=== PATIENT | male | born 1955 | race Caucasian/White ===

== ENCOUNTER 2022-12-03 16:19 | Emergency (ER) | payer MEDICARE, SELFPAY ==
[2022-12-03 17:53] VITALS: BP 157/82; PULSE 63; RESP 18; TEMP 36.1; O2SAT 98; BMI 27.1
--- NOTE | 2022-12-03 17:55 | ED.GENADULT ---
HPI - General Adult General Chief complaint: Wound/Laceration Stated complaint: laceration right hand Time Seen by Provider: 12/03/22 20:31 Source: patient Mode of arrival: ambulatory Limitations: no limitations History of Present Illness HPI narrative: 67-year-old male presents with hand laceration of the right hand. Laceration was from glass. His large PEs. No shards. Was a contaminated area. No prior treatment. There is no numbness or tingling. Pain is mild. Does not radiate. Worse with palpation. No loss of strength. Related Data Previous Rx's Medication Instructions Recorded cephalexin 500 mg capsule 500 mg PO TID #14 caps 12/03/22 Allergies Allergy/AdvReac Type Severity Reaction Status Date / Time No Known Allergies Allergy Verified 12/03/22 20:51 Review of Systems Review of Systems: CONSTITUTIONAL: Denies weight loss, fever and chills. HEENT: Denies changes in vision and hearing. RESPIRATORY: Denies SOB and cough. CV: Denies palpitations no CP. GI: Denies abdominal pain, nausea, vomiting and diarrhea. : Denies dysuria and urinary frequency. MSK: Denies myalgia and joint pain. SKIN: Denies rash and pruritus. Laceration to hand NEUROLOGICAL: Denies headache and syncope. PSYCHIATRIC: Denies recent changes in mood. Denies anxiety and depression. All other ROS are negative unless in HPI PMFSH Social History Social History Smoked in Last 30 Days: No Use of substances other than those prescribed or required for medical reasons: No Advance Directives: No Advance Directives Information Provided: No Physical Exam ED Vital Signs: Vital Signs - 24 hr 12/03/22 17:53 12/03/22 20:41 Temperature 97 F Pulse Rate 63 63 Respiratory Rate 18 18 Blood Pressure 157/82 H 147/82 H Pulse Oximetry 98 98 Oxygen Delivery Method Room Air Room Air BMI result Body Mass Index 27.1 GEN: Well developed, no acute distress, alert, oriented HEENT: Normocephalic, atraumatic, normal external ears, nose appears normal Eyes: Normal to appearance Neck: Supple, no lymphadenopathy Respiratory: Talks in complete sentences, no respiratory distress Extremities: No clubbing cyanosis or edema Neurologic: No focal neurologic deficits, cranial nerves 2-12 intact, gait normal Skin: No rash , 6 cm laceration to the dorsal aspect of the right hand. No visible tendon damage. Able to flex and extend against resistance. Neurovascular intact. Capillary refill normal. Course Course Course Narrative: This is an RME: Additional HPI, ROS, PE not included below will be deferred to primary provider. This is a 37-onjp-ayw-male, hx of hypertension, CVA in September 2016, presenting to the emergency department with a complaint of right hand laceration which occurred today. Pt was moving a piece of glass at his home and lacerated the top of his hand. Partial thickness laceration noted, approx 5cm, no active bleeding. Will need suture repair. Plan: TDAP Reevaluation(s) Reevaluation #1: Wound care instructions provided to patient Time: 21:18 Medications Administered Discontinued Medications Generic Name Dose Route Start Last Admin Trade Name Freq PRN Reason Stop Dose Admin Cephalexin HCl 500 mg 12/03/22 20:51 12/03/22 20:59 Cephalexin 500 Mg Capsule PO 12/03/22 20:52 500 mg ONCE ONE Administration Diphtheria/Tetanus/Acell Pertussis 0.5 ml 12/03/22 20:51 12/03/22 20:59 Diphth,Pertus(Acell),Tet Adult 0.5 Ml Syringe IM 12/03/22 20:52 0.5 ml .ONCE ONE Administration Procedures Laceration Laceration 1: Site: hand Side (If applicable): right Size (cm): 6 Description: linear Depth: simple, single layer Pre-repair: irrigated extensively and deep structures intact Size (cm): other (Dermabond and Steri-Strips) Medical Decision Making Medical Decision Making MDM Narrative: 67-year-old male presents with hand laceration. There is no evidence 10 and tendon damage. Patient is neurovascular intact. Parous performed using Dermabond and Steri-Strips following extensive irrigation. Patient was prophylaxed with Keflex. Tetanus vaccine was provided to the patient. Patient will follow-up as needed. Differential Diagnosis Differential Diagnoses: The differential diagnosis associated with the presentation includes (Hand laceration, abrasion, rash) Hand laceration Prescription Management I considered prescription management with: Pain Medication and Antibiotic Discharge Plan Discharge Clinical Impression: Laceration Patient Disposition: Home, Self-Care Instructions: Skin Adhesive Care (ED), Head Laceration (ED) Prescriptions: New cephalexin 500 mg capsule 500 mg PO TID Qty: 14 0RF
--- OUTSIDE RECORDS SUMMARY | 2022-12-03 19:17 | XMS_ITS | Continuity of Care Document ---
Author Name Unknown Organization [facility] Markus Bird lt Address [address] [place] [address]- Care Team Providers Care Timber Repairer Name Role Phone Erin Maye SAL Primary Care Physician Encounter [facility] Date(s): 10/29/22 - 11/28/22 [facility] Adult [address] [place] [address]- Allergies, Adverse Reactions, Alerts No Known Allergies Immunizations Given and Recorded Vaccine Date Status Refusal Reason zoster vaccine, inactivated 09/08/22 Recorded influenza virus vaccine, inactivated 04/01/22 Wilber rded [id number] bivalent booster vax 04/01/22 Recorded pneumococcal 13-valent vaccine 05/22/21 Recorded Medications amLODIPine 5 mg oral tablet TAKE 1 TABLET BY MOUTH TWICE A DAY Start Date: 10/29/22 Status: Ordered aspirin 325 mg oral delayed release tablet TAKE 1 TABLET BY MOUTH EVERYDAY AT BEDTIME Start Date: 10/29/22 Status: Ordered atorvastatin 40 mg oral tablet 1 tablet = 40 mg, By Mouth, Daily, # 90 tablet, 0 Refills, Maintenance, 10/29/22 9:42:00 EDT, Tablet, Partial fill upon patient request if the prescription is for a schedule II opioid drug. Start Date: 10/29/22 Status: Ordered Glucosamine & Chondroitin with MSM 0 Refills, Maintenance, 10/29/22 10:02:00 EDT Start Date: 10/29/22 Status: Ordered High Potency Vitamin D3 125 mcg (5000 intl units) oral capsule 1 capsule = 125 mcg, By Mouth, Daily, 0 Refills, Maintenance, 10/29/22 10:02:00 EDT Start Date: 10/29/22 Status: Ordered hydrochlorothiazide 25 mg oral tablet TAKE 1 TABLET BY MOUTH EVERY DAY IN THE MORNING Start Date: 10/29/22 Status: Ordered lisinopril 20 mg oral tablet 20 mg, 1, tablet, By Mouth, 2 times a day, Refills 0, Maintenance, 10/29/22 9:42:00 EDT Start Date: 10/29/22 Status: Ordered lubiprostone 24 mcg oral capsule 1 capsule = 24 mcg, By Mouth, 2 times a day, for 90 days, TAKE 1 CAPSULE BY MOUTH TWICE A DAY, # 180 capsule, 0 Refills, Hard Stop 01/27/23 14:35:00 EDT, 10/29/22 14:35:00 EDT, Capsule, [facility], 173.8, cm, 10/29/22 9:28:00 EDT, Height Start Date: 10/29/22 Stop Date: 01/27/23 Status: Ordered lubiprostone 24 mcg oral capsule 1 capsule = 24 mcg, By Mouth, 2 times a day, TAKE 1 CAPSULE BY MOUTH TWICE A DAY, # 180 capsule, 0 Refills, Maintenance, 01/27/23 14:35:00 EDT, Capsule, [id number], 173.8, cm, 10/29/22 9:28:00 EDT, Height Start Date: 01/27/23 Stop Date: 04/27/23 Status: Ordered Problem List Condition Confirmation Course Effective Dates Status H ealth Status Informant Benign essential hypertension Confirmed Active Chronic right shoulder pain Confirmed Active Vitamin B12 deficiency Confirmed Active Dupuytren's contracture of right hand Confirmed Active Ex-cigarette smoker Confirmed Active Impaired fasting glucose Confirmed Active Ischemic stroke Confirmed Active Mixed hyperlipidemia Confirmed Active Nocturia Confirmed Active Overweight Confirmed Active Social History Social History Type Response Smoking Status Former smoker, quit more than 30 days ago; Type: Cigarettes; Tobacco use times per day: 1 PPD; Number of years: 38; Total pack years: 38; Started at age: 23; Stopped at age: 61; entered on: 10/29/22 Sex Male Patient Care team information Care Team Personnel Name: Maye Khan NP Position: S PCO Associate Professional Member Role: PCP Address: Address: [address] [place] [id number]- Care Team Related Persons Name: SONAM JANET Address: [address] [place] [address]
--- OUTSIDE RECORDS SUMMARY | 2022-12-03 19:17 | XMS_ITS | Continuity of Care Document ---
Author Name Unknown Organization [facility] Bird lt Address [address] [place] [address]- Care Team Providers Care Traffic Representative Name Role Phone Erin Maye SAL Primary Care Physician [place] [facility] [place] [facility] Adult [address] [place] [address]- Attending Physician: Admhoma, [id number] Admitting Physician: AdmtrTyrone Referring Physician: Admtr, [id number] Allergies, Adverse Reactions, Alerts No Known Allergies Immunizations Given and Recorded Vaccine Date Status Refusal Reason zoster vaccine, inactivated 09/08/22 Recorded influenza virus vaccine, inactivated 04/01/22 Wilber rded [id number] bivalent booster vax 04/01/22 Recorded pneumococcal 13-valent [...] 0 Refills, Maintenance, 01/27/23 14:35:00 EDT, Capsule, [id number], 173.8, cm, 10/29/22 9:28:00 EDT, Height [...] Associate Professional Member Role: PCP Address: Address: [address] [place] [id number] Care Team Related Persons Name: JANET MASTERS Address: [address] [place] [address]
--- OUTSIDE RECORDS SUMMARY | 2022-12-03 19:17 | XMS_ITS | Continuity of Care Document ---
Author Name Unknown Organization [facility] Bird lt Address [address] [place] [address]- Care Team Providers Care Solar Photovoltaic Installer Name Role Phone Maye Khan NP Primary Care Physician [place] [facility] [place] [address] [place] [address]- Encounter Diagnosis Benign essential hypertension(Discharge Diagnosis) - 10/29/22 Impaired fasting glucose(Discharge Diagnosis) - 10/29/22 Vitamin B12 deficiency(Discharge Diagnosis) - 10/29/22 Nocturia(Discharge Diagnosis) - 10/29/22 Ischemic stroke(Discharge Diagnosis) - 10/29/22 Ex-cigarette smoker(Discharge Diagnosis) - 10/29/22 Mixed hyperlipidemia(Discharge Diagnosis) - 10/29/22 Overweight(Discharge Diagnosis) - 10/29/22 Attending Physician: Maye Khan NP Referring Physician: Teodoro Macdonald MD Allergies, Adverse Reactions, Alerts No Known Allergies Immunizations Given and Recorded Vaccine Date Status Refusal Reason zoster vaccine, inactivated 09/08/22 Recorded influenza virus vaccine, inactivated 04/01/22 Wilber rded [id number] bivalent booster vax 04/01/22 Recorded pneumococcal 13-valent [...] Active Nocturia Confirmed Active Overweight Confirmed Active Diagnosis Diagnosis Type Effective Dates Health Status Clinical Service Informant Benign essential hypertension Discharge Diagnosis 10/29/22 Overweight Discharge Diagnosis 10/29/22 Ischemic stroke Discharge Diagnosis 10/29/22 Ex-cigarette smoker Discharge Diagnosis 10/29/22 Mixed hyperlipidemia Discharge Diagnosis 10/29/22 Impaired fasting glucose Discharge Diagnosis 10/29/22 Vitamin B12 deficiency Discharge Diagnosis 10/29/22 Nocturia Discharge Diagnosis 10/29/22 Procedures Procedure Date Related Diagnosis Body Site Status Reference (Outside) Lab- A1C 6.1%, chol 135, trig 62, HDL 62, LDL 60, CA 9.2, gluc 111, BUN 15, AST 23, ALT 19. WBC 8.3, RBC 4.72, hgb 14.5, hct 44.5, plt 309 PSA 1.8 1 05/22/21 Completed Repair of rotator cuff of shoulder 2009 Completed Excision of lipoma of back Completed 1A1C 6.1%, chol 135, trig 62, HDL 62, LDL 60, CA 9.2, gluc 111, BUN 15, AST 23, ALT 19. WBC 8.3, RBC4.72, hgb 14.5, hct 44.5, plt 309 PSA 1.8 Vital Signs Most recent to oldest [Reference Range]: 1 Height 173.8 cm (10/29/22 9:28 AM) Weight 83.1 kg (10/29/22 9:28 AM) Oxygen Saturation [94-100 %] 98 % (10/29/22 9:28 AM) Pulse Rate [55-90 bpm] 64 bpm (10/29/22 9:28 AM) Body Mass Index [18.5-24.99 kg/m2] 27.51 kg/m2 *H* (10/29/22 9:28 AM) Blood Pressure [90-138/55-84 mm Hg] 122/ 74mm Hg (10/29/22 9:28 AM) Respiratory Rate [16-30 br/min] 20 br/mi n (10/29/22 9:28 AM) Temperature [96.8-100.4 DegF] 98.4 DegF (10/29/22 9:28 AM) Mode of Delivery (Oxygen) Room air (10/29/22 9:28 AM) Blood pressure sites Arm, left (10/29/22 9:28 AM) Temperature Route Oral (10/29/22 9:28 AM) Weight Obtained Via Standing scale (10/29/22 9:28 AM) Social History Social History Type Response Smoking [...] Associate Professional Member Role: PCP Address: Address: [address] [place] [id number]- Care Team Related Persons Name: JANET MASTERS Address: [address] [place] [address]
[2022-12-03 20:41] VITALS: BP 147/82; PULSE 63; RESP 18; O2SAT 98
[2022-12-03] MEDS: Diphth,Pertus(ACell),Tet Adult 0.5 ML SYRINGE IM (20:59)
[2022-12-03] MEDS: cephALEXin 500 MG CAPSULE PO (20:59)
== END 2022-12-03 21:25 | disposition home or self-care (01) ==
PROVIDERS: Emergency Provider Emergency Medicine
DX: S61.411A Laceration without foreign body of right hand, initial encounter (principal); S60.511A Abrasion of right hand, initial encounter; W25.XXXA Contact with sharp glass, initial encounter; Y93.9 Activity, unspecified; Y92.9 Unspecified place or not applicable; Y99.9 Unspecified external cause status; Z23 Encounter for immunization
CPT/HCPCS: 12042; 90471; 90715; 99284